=== PATIENT | male | born 1980 | race Caucasian/White ===

== ENCOUNTER 2019-05-19 16:35 | Emergency (ER) | payer SELFPAY ==
[~2019-05-19] VITALS: Ht 188 cm; Wt 108.2 kg
[2019-05-19 16:38] VITALS: BP 157/88
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
[2019-05-19] MEDS ORDERED: BUPIVACAINE 0.25% ONE (17:04)
[2019-05-19] MEDS ORDERED: CEFAZOLIN 1,000 MG ONE (17:19)
[2019-05-19] MEDS ORDERED: BUPIVACAINE/PF 0.25% INFIL ONE (17:30)
[2019-05-19] MEDS ORDERED: CEFAZOLIN 1,000 MG IM ONE (17:30)
--- NOTE | 2019-05-19 18:55 | NUR ---
Report from Ketan CORLEY.
--- NOTE | 2019-05-19 19:15 | NUR ---
PD spoke with pt. Pt ready for DC, all questions addressed.
== END 2019-05-19 19:30 ==
LOC: ED 19:24
DX: S61.201A Unspecified open wound of left index finger without damage to nail, initial encounter (principal); X58.XXXA Exposure to other specified factors, initial encounter; Y93.89 Activity, other specified; Y92.89 Other specified places as the place of occurrence of the external cause; Y99.8 Other external cause status
CPT/HCPCS: 64450; 73140; 96372; 99284; J0690; J3490